=== PATIENT | male | born 1975 | race Two or more races ===

== ENCOUNTER 2023-06-14 08:56 | Emergency (ER) | payer MEDICARE, MEDICAID ==
[~2023-06-14] VITALS: Ht 185.4 cm; Wt 85.0 kg
[2023-06-14 09:53] VITALS: BP 119/86; PULSE 88; RESP 16; TEMP 97.6; O2SAT 99
[2023-06-14] MEDS ORDERED: HYDROcodone-ACET 5/325MG TAB PO ONE (10:45)
[2023-06-14] MEDS ORDERED: SUMA50TA2 PO (10:47)
== END 2023-06-14 10:52 | disposition home or self-care (01) ==
LOC: ER 08:56
DX: S00.03XA Contusion of scalp, initial encounter (principal); G43.909 Migraine, unspecified, not intractable, without status migrainosus; W22.8XXA Striking against or struck by other objects, initial encounter; Y93.89 Activity, other specified; Y92.89 Other specified places as the place of occurrence of the external cause; Y99.8 Other external cause status
CPT/HCPCS: 70450

== ENCOUNTER 2025-01-06 09:37 | Emergency (ER) | payer MEDICARE, MEDICAID ==
[~2025-01-06] VITALS: Ht 185.4 cm; Wt 80.3 kg
[~2025-01-06 09:37] MED LIST: SUMA50TA2 PO
[2025-01-06] MEDS ORDERED: GABA-1308 PO (11:01)
--- NOTE | 2025-01-06 11:02 | ED.PDOC ---
History of Present Illness HPI Comments A 49 YEAR OLD MALE PRESENTS TO THE ED WITH CHIEF COMPLAINT OF MEDICATION REFILL. PATIENT REPORTS THAT HE NORMALLY TAKES GABAPENTIN 100MG THREE TIMES A DAY FOR MIGRAINE RELIEF, NOTING THAT NO OTHER MEDICATION HE HAS TRIED HAS WORKED. PATIENT STATES HE NEEDS A REFILL HE HAS RECENTLY CHANGED INSURANCES AND HIS PREVIOUS PRESCRIPTION . PATIENT DENIES ANY N/V, DIZZINESS, NUMBNESS, OR WEAKNESS. PT IS ALERT, ORIENTATION X4 WITH NORMAL GAIT. NO OTHER SYMPTOMS REPORTED AT THIS TIME OF CARE. Chief Complaint: Headache Time Seen by MD: 10:49 Reviewed Notes: Nurses Notes, Medications, Allergies Allergies: Coded Allergies: No Known Drug Allergy (Verified Allergy, Unknown, 06/14/23) Home Meds Active Scripts Gabapentin (Gabapentin) 100 Mg Cap, 1 CAP PO TID, #90 CAP Prov:JOSE FRANCISCO RIOS 01/06/25 Sumatriptan Succinate (Imitrex) 50 Mg Tab, 1 TAB PO UD, #14 TAB Prov:JOSE FRANCISCO RIOS 06/14/23 Information Source: Patient Mode of Arrival: Ambulatory Severity: Mild Timing: Hours Duration: Since onset Prehospital treatment: None Medication Refill: Ran out of Medication, For: Pain Past Medical History PAST MEDICAL HISTORY: Seizures Past Medical History (Other): MIGRAINES Surgical History: Denies all surgeries Family History Family History: Reviewed,noncontributory to illness Social History Smoker: Non-Smoker Alcohol: Denies ETOH Use Drugs: Denies Drug Use Lives In: Home Constitutional: denies: chills, diaphoresis, fatigue, fever, malaise, sweats, weakness, others EENTM: denies: blurred vision, double vision, ear bleeding, ear discharge, ear drainage, ear pain, ear ringing, eye pain, eye redness, hearing loss, mouth pain, mouth swelling, nasal discharge, nose bleeding, nose congestion, nose pain, photophobia, tearing, throat pain, throat swelling, voice changes, others Respiratory: denies: cough, hemoptysis, orthopnea, SOB at rest, shortness of breath, SOB with excertion, stridor, wheezing, others Cardiovascular: denies: chest pain, dizzy spells, diaphoresis, Dyspnea on exertion, edema, irregular heart beat, left arm pain, lightheadedness, palpitations, PND, syncope, others Gastrointestinal: denies: abdomen distended, abdominal pain, blood streaked bowels, constipated, diarrhea, dysphagia, difficulty swallowing, hematemesis, melena, nausea, poor appetite, poor fluid intake, rectal bleeding, rectal pain, vomiting, others Genitourinary: denies: burning, dysuria, flank pain, frequency, hematuria, incontinence, penile discharge, penile sore, pain, testicle pain, testicle swelling, urgency, others Neurological: reports: headache; denies: dizziness, fainting, left sided numbness, left sided weakness, numbness, paresthesia, pre-existing deficit, right sided numbness, right sided weakness, seizure, speech problems, tingling, tremors, weakness, others Musculoskeletal: denies: back pain, gout, joint pain, joint swelling, muscle pain, muscle stiffness, neck pain, others Integumetry: denies: bruises, change in color, change in hair/nails, dryness, laceration, lesions, lumps, rash, wounds, others Allergic/Immunocompromised: denies: Difficulty Healing, Frequent Infections, Hives, Itching, others Hematologic/Lymphatic: denies: anemia, blood clots, easy bleeding, easy bruising, swollen glands, others Endocrine: denies: excessive hunger, excessive sweating, excessive thirst, excessive urination, flushing, intolerance to cold, intolerance to heat, unexplained weight gain, unexplained weight loss, others Psychiatric: denies: anxiety, bipolar disorder, depression, hopeless, panic disorder, schizophrenia, sleepless, suicidal, others All Other Systems: Reviewed and Negative Physical Exam General Appearance: No Apparent Distress, Normal HEENT: Normal ENT Inspection, PERRL/EOMI Neck: Full Range of Motion, Non-Tender, Normal, Normal Inspection Respiratory: Chest Non-Tender, Lungs Clear, No Accessory Muscle Use, No Respiratory Distress, Normal Breath Sounds Cardiovascular: No Edema, No JVD, No Murmur, No Gallop, Normal Peripheral Pulses, Regular Rate/Rhythm Breast Exam: Deferred Gastrointestinal: No Organomegaly, Non Tender, No Pulsatile Mass, Normal Bowel Sounds, Soft Genitalia: Deferred Pelvic: Deferred Rectal: Deferred Extremities: No calf tenderness, Normal capillary refill, Normal inspection, Normal range of motion, Non-tender, No pedal edema Musculoskeletal : Apperance: Normal Neurologic: Alert, cook helper preserves II-XII nml as Tested, No Motor Deficits, Normal Affect, Normal Mood, No Sensory Deficits Cerebellar Function: Normal Reflexes: Normal Skin: Dry, Normal Color, Warm Peripheral Pulses: 2+ carotid (R), 2+ carotid (L) Lymphatic: No Adenopathy Was a procedure done? Was a procedure done?: No Differential Dx Considerations may include: MIGRAINE HEADACHE,MEDICATION REFILL X-Ray, Labs, Meds, VS Vital Signs Date Time Temp Pulse Resp B/P (MAP) Pulse Ox O2 Delivery O2 Flow Rate FiO2 01/06/25 11:03 97.7 75 18 135/84 (101) 100 97.7 01/06/25 11:03 75 18 100 Room Air 01/06/25 10:04 97.7 75 18 135/84 (101) 100 X-Ray, Labs, Meds, VS Comment EXTERNAL MEDICAL RECORDS REVIEWED: [NONE] INDEPENDENT HISTORIANS: [NONE] SOCIAL DETERMINANTS OF HEALTH: [NONE] LABS ORDERED: NONE REVIEWED AND INTERPRETED RESULTS: NONE IMAGING ORDERED: NONE TREATMENTS ORDERED: NONE PROCEDURES PERFORMED: NONE CRITICAL CARE TIME: NONE I HAVE DISCUSSED THE PATIENT WITH THE ATTENDING PHYSICIAN DR. FOWLER AND HE AGREES WITH THE PATIENT'S PLAN OF CARE AND DISPOSITION. BASED ON HISTORY OF PRESENT ILLNESS, AND PHYSICAL EXAM, PATIENT WILL BE DISCHARGED HOME. DISCUSSED PLAN FOR DISCHARGE HOME WITH RX. MEDICATION WARNINGS GIVEN. SHARED DECISION MAKING: DISCUSSED WITH PATIENT THAT THEIR WORKUP WAS NORMAL. PATIENT INSTRUCTED TO FOLLOW UP WITH PRIMARY CARE PROVIDER IN 1-2 DAYS FOR RE- EVALUATION OF SYMPTOMS. PATIENT VERBALIZES UNDERSTANDING TO RETURN TO ED FOR NEW OR WORSENING SYMPTOMS OR IF FOLLOW UP WITH PCP CANNOT BE OBTAINED. PATIENT FEELS COMFORTABLE GOING HOME AT THIS TIME. ALL QUESTIONS ADDRESSED AT TIME OF DISCHARGE. Time of 1ST Reevaluation: 11:12 Reevaluation 1ST: Improved Patient Education/Counseling: Diagnosis, Treatment, Need For Follow Up Family Education/Counseling: Diagnosis, Treatment, No Family Present Medical Screening: No EMC Exist At This Time Departure 1 Departure Time of Disposition: 11:12 Impression: Primary Impression: Medication refill Additional Impression: Hx of migraine headaches Disposition: HOME / SELF CARE / HOMELESS Condition: Stable Additional Instructions: FOLLOW-UP WITH PCP IN 1 TO 2 DAYS. TAKE MEDICATIONS PRESCRIBED. RETURN TO ED FOR ANY NEW OR WORSENING SYMPTOMS. e-Prescriptions Gabapentin (Gabapentin) 100 Mg Cap 1 CAP PO TID, #90 CAP Prov: JOSE FRANCISCO RIOS 01/06/25 Discharged With: Self Critical Care Note Critical Care Time?: No Stability Stability form required: No Heart Score Heart Score: Heart Score Response (Comments) Value History N/A 0 EKG N/A 0 Age N/A 0 Risk Factors N/A 0 Troponin N/A 0 Total 0 I personally scribed for JOSE FRANCISCO RIOS ([email or web address]) on 01/06/25 at 11:02. Electronically submitted by Carrington Ying ([email or web address]). JOSE FRANCISCO RIOS Jan 06, 2025 11:02
[2025-01-06 11:03] VITALS: BP 135/84; PULSE 75; RESP 18; TEMP 97.7; O2SAT 100
== END 2025-01-06 11:07 | disposition home or self-care (01) ==
LOC: ER 09:37
DX: G43.909 Migraine, unspecified, not intractable, without status migrainosus (principal); Z76.0 Encounter for issue of repeat prescription; Z79.899 Other long term (current) drug therapy